=== PATIENT | male | born 1950 | race Asian ===

== ENCOUNTER → 2021-04-29 | Outpatient (CLI) | payer OTHER | END | disposition home or self-care (01) | LOC: RADMN 09:32 | PROVIDERS: ATTEND Physical Medicine & Rehabilitation Spinal Cord Injury Medicine | DX: M43.16 Spondylolisthesis, lumbar region (principal); M51.17 Intervertebral disc disorders with radiculopathy, lumbosacral region; M48.061 Spinal stenosis, lumbar region without neurogenic claudication; M48.07 Spinal stenosis, lumbosacral region | CPT/HCPCS: 72148 ==